=== PATIENT | male | born 1955 | race Hispanic/Latino ===

== ENCOUNTER 2017-07-01 17:04 | Emergency (ER) | payer SELFPAY ==
[2017-07-01] MEDS ORDERED: Lidocaine 1% (PF) 30 ML VIAL ONE (17:30)
--- NOTE | 2017-07-01 19:06 | RAD ---
THREE VIEWS RIGHT LONG FINGER: Indication: 61-year-old male that reportedly had a fingertip avulsion injury when a large crank fell on the fing er. Comparison: None. FINDINGS: There is a comminuted distal tuft fracture involving the right long finger with soft tissue macerati on of the distal tip. No radiopaque foreign body is evident. IMPRESSION: Distal tuft fracture of the right long finger with prominent soft tissue injury to the tip of the ri ght long finger. No radiopaque foreign body is demonstrated. POS: [facility]
[2017-07-01] MEDS ORDERED: CEFAZOLIN/Water 2 GM/20 ML SYRINGE SLOW IVP SCH (19:30)
[2017-07-01] MEDS ORDERED: Morphine 10 MG/ML VIAL ONE (19:34)
== END 2017-07-01 20:20 | disposition home or self-care (01) ==
LOC: ERS 17:04
DX: S62.632B Displaced fracture of distal phalanx of right middle finger, initial encounter for open fracture (principal); W20.8XXA Other cause of strike by thrown, projected or falling object, initial encounter
CPT/HCPCS: 96374; 96375; J2001; J2270

== ENCOUNTER 2018-03-27 15:21 | Outpatient (CLI) | payer OTHER | END 2018-03-27 15:22 | disposition home or self-care (01) | LOC: BICRAD 15:21 | PROVIDERS: ATTEND Internal Medicine | DX: Z02.71 Encounter for disability determination (principal); M79.641 Pain in right hand; M19.042 Primary osteoarthritis, left hand ==

== ENCOUNTER 2018-10-07 13:40 | Outpatient (CLI) | payer OTHER ==
--- NOTE | 2018-10-07 14:48 | RAD ---
LEFT SHOULDER TWO VIEWS: HISTORY: Shoulder pain. FINDINGS: Minimal arthritic changes of the AC and glenohumeral joints are seen. The humeral head is slightly h igh-riding. This could indicate an underlying rotator cuff abnormality. No fractures. The bones ar e demineralized. IMPRESSION: Slightly high-riding humeral head. If the patient has symptoms that would suggest rotator cuff injury, further evaluation with MRI would be suggested. POS: [facility]
--- NOTE | 2018-10-07 14:54 | RAD ---
CERVICAL SPINE THREE VIEWS: HISTORY: Neck pain. TECHNIQUE: Lateral views include neutral, flexion, and extension positioning. FINDINGS: Disk space narrowing at the C3-C4 and C4-C5 levels. Mild widespread osteophytosis. Alignment is wit hin normal limits. No abnormal translational motion upon flexion or extension. IMPRESSION: Mild osseous degenerative changes. No acute osseous abnormalities are demonstrated. POS: [facility]
== END 2018-10-07 13:41 | disposition home or self-care (01) ==
LOC: RAD 13:40
PROVIDERS: ATTEND Nurse Practitioner Family
DX: M47.22 Other spondylosis with radiculopathy, cervical region (principal); M25.512 Pain in left shoulder
CPT/HCPCS: 72040

== ENCOUNTER 2018-12-30 13:26 | Outpatient (CLI) | payer OTHER ==
--- NOTE | 2018-12-30 14:26 | RAD ---
MRI SCREENING GARCIA VIEW SINUS: DATE: 12/30/2018. PROVIDED CLINICAL HISTORY: Metallic foreign body in right eye previously with subsequent removal. FINDINGS: There is no evidence for metallic foreign body in the region of the orbits. IMPRESSION: As above. POS: [facility]
--- NOTE | 2018-12-30 15:29 | MRI ---
MRI OF THE RIGHT THIRD DIGIT: DATE: 12/30/2018. PROVIDED CLINICAL HISTORY: Right middle digit pain status post injury 1 year ago. FINDINGS: The flexor tendons and extensor mechanism appear intact. The MCP and IP joint capsules appear intact. No regional joint effusion is evident. Subcortical cys t-like changes are seen within the third metacarpal head presumably on the basis of degenerative pierre ge. The courses of the regional major neurovascular structures appear unremarkable. There is nonspe cific nonmass-like signal alteration involving the subcutaneous adipose layer at the volar aspect of the third digit terminal tuft that may reflect scarring. IMPRESSION: No evidence for an acute process. POS: OFF
== END 2018-12-30 13:27 | disposition home or self-care (01) ==
LOC: BICMRI 13:26
PROVIDERS: ATTEND Orthopaedic Surgery Hand Surgery
DX: G58.8 Other specified mononeuropathies (principal)
CPT/HCPCS: 70210

== ENCOUNTER 2020-01-29 15:12 | Outpatient (CLI) | payer OTHER ==
--- NOTE | 2020-01-29 15:48 | ULT ---
Exam: Left lower extremity venous ultrasound with Doppler History: Left knee venous anomaly TECHNIQUE: Grayscale, color flow, Doppler imaging and spectral waveform analysis of the left lower te rminate venous system FINDINGS: There is compressibility, presence of flow and augmentation in the common femoral vein, fem oral vein and popliteal vein. There is flow in the greater saphenous vein, profunda femoral vein and posterior tibial vein. In the region of concern, there is a superficial vessel that is present. This vessel compresses and h as flow. IMPRESSION: 1. No evidence of thrombus in the left lower extremity deep venous system 2. Superficial varicose vein corresponding to the region of palpable concern.
== END 2020-01-29 15:13 | disposition home or self-care (01) ==
LOC: BICULT 15:12
PROVIDERS: ATTEND Family Medicine
DX: Q27.9 Congenital malformation of peripheral vascular system, unspecified (principal); I83.92 Asymptomatic varicose veins of left lower extremity

== ENCOUNTER 2020-03-23 09:58 | Emergency (ER) | payer OTHER ==
[2020-03-23 19:58] LABS: SARS-CoV-2 MS2 Positive; SARS-CoV-2 N Gene Negative; SARS-CoV-2 S Gene Negative; SARS-CoV-2 orf1ab Negative
== END 2020-03-23 10:55 | disposition home or self-care (01) ==
LOC: ERS 09:58
DX: Z20.828 Contact with and (suspected) exposure to other viral communicable diseases (principal); F17.210 Nicotine dependence, cigarettes, uncomplicated
CPT/HCPCS: 87635; 99283; U0003

== ENCOUNTER 2025-03-31 13:46 | Outpatient (CLI) | payer OTHER ==
[~2025-03-31 13:46] MED LIST: Iopamidol 370 76% 100 ML VIAL ONE
[2025-03-31 14:27] LABS: Estimated GFR - POC 66.0
== END 2025-03-31 13:47 | disposition home or self-care (01) ==
LOC: CT 13:46
PROVIDERS: ATTEND Family Medicine
DX: M79.604 Pain in right leg (principal); M79.605 Pain in left leg; I83.899 Varicose veins of unspecified lower extremity with other complications; F17.200 Nicotine dependence, unspecified, uncomplicated; I70.1 Atherosclerosis of renal artery; K76.9 Liver disease, unspecified
CPT/HCPCS: 36415; 75635; 82565; Q9967